=== PATIENT | male | born 1990 | race Hispanic/Latino ===

== ENCOUNTER 2018-09-26 07:59 | Emergency (ER) | payer BC, OTHER ==
[2018-09-26] MEDS ORDERED: Ibuprofen 800 MG TAB ONE (08:42)
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
== END 2018-09-26 09:24 | disposition home or self-care (01) ==
LOC: EDSEX 07:59 → ERS 07:59
DX: S43.402A Unspecified sprain of left shoulder joint, initial encounter (principal); S13.9XXA Sprain of joints and ligaments of unspecified parts of neck, initial encounter; I10 Essential (primary) hypertension; F17.210 Nicotine dependence, cigarettes, uncomplicated; V44.5XXA Car driver injured in collision with heavy transport vehicle or bus in traffic accident, initial encounter
CPT/HCPCS: 72040